=== PATIENT | male | born 1970 | race Caucasian/White ===

== ENCOUNTER 2016-10-29 12:48 | Emergency (ER) | payer MEDICAID ==
[~2016-10-29] VITALS: Ht 182.9 cm; Wt 93.0 kg
[~2016-10-29 12:48] MED LIST: ALBU17AE13 INH; ALBU17AE19 INH; BENZ100C67 PO; DOXY100C2 PO; FOLI-43 PO; THIA100T13 PO; TRAM50TA92 PO; [UNRECOGNIZED DRUG - MIXTURE] PO
[2016-10-29 12:59] VITALS: BP 152/92; PULSE 79; RESP 16; TEMP 97.2; O2SAT 100
--- NOTE | 2016-10-29 13:04 | NUR ---
Patient to ER bed 7 to gown for evaluation. Side rails up. Report given to Aixa BONNER.
--- NOTE | 2016-10-29 13:05 | NUR ---
PT. TO ER FOR ASTHMA SYMPTOMS, AAOx4 STATES THAT HE HAS A HX OF BRONCHITIS AND ASTHMA SEASONAL, C/O COUGH AND COLD FOR PAST 2 DAYS, HAS BEEN TAKING BREATHING TX AT HOME, STATES THAT ASTHMA IS SEASONAL GETS WORSE AT THIS TIME OF THE YEAR, STATES DIFFICULT BREATHING, DENIES CHEST PAIN, DENIES ANY OTHER SYMPTOMS
--- NOTE | 2016-10-29 13:06 | NUR ---
ER Dr. Stuart at bedside examining patient.
[2016-10-29] MEDS ORDERED: DEXAMETHASONE SOD PHOSPHATE 10 MG/ML VIAL IM ONE (13:15)
[2016-10-29 13:20] VITALS: BP 131/72; PULSE 77; RESP 16; TEMP 98.6; O2SAT 99
--- NOTE | 2016-10-29 13:20 | NUR ---
Patient given written and verbal discharge instructions and verbalizes understanding. ER MD DR. NORTH discussed with patient the results and treatment provided. Patient in stable condition. ID arm band removed. Rx of PREDNISONE given. Patient educated on pain management and to follow up with PMD. Pain Scale 0/10 Opportunity for questions provided and answered.
== END 2016-10-29 13:20 | disposition home or self-care (01) ==
LOC: SED 12:48
DX: J45.901 Unspecified asthma with (acute) exacerbation (principal); R03.0 Elevated blood-pressure reading, without diagnosis of hypertension
CPT/HCPCS: 96372; 99283; J1100

== ENCOUNTER 2017-07-10 14:29 | Emergency (ER) | payer MEDICAID ==
[~2017-07-10] VITALS: Ht 182.9 cm; Wt 90.7 kg
[2017-07-10 14:31] VITALS: BP_SYST 144
[2017-07-10] MEDS ORDERED: IPRATROPIUM/ALBUTEROL SULFATE 3 ML AMPUL.NEB INH ONE (14:45)
[2017-07-10] MEDS ORDERED: PREDNISONE 20 MG TABLET PO ONE (14:45)
[2017-07-10 16:10] VITALS: BP_SYST 126
== END 2017-07-10 16:10 | disposition home or self-care (01) ==
LOC: SED 14:29
DX: J45.901 Unspecified asthma with (acute) exacerbation (principal); R03.0 Elevated blood-pressure reading, without diagnosis of hypertension; K21.9 Gastro-esophageal reflux disease without esophagitis; Z87.891 Personal history of nicotine dependence
CPT/HCPCS: 71010; 94640; 99283; J7512